=== PATIENT | female | born 1960 | race Caucasian/White ===

== ENCOUNTER → 2017-02-23 | Outpatient (CLI) | payer BC ==
[~2017-02-23] MED LIST: ADVAIR HFA 45-218 GM INH; BLACK COHOSH40 M1 PO; CALCIUM 600 +1 EAC5 PO; CITRUCEL500 MG PO; DIFLUCAN PO; IRON325 MG PO; OMEPRAZOLE40 M1; VITAMIN D35000 UNIT PO
--- NOTE | ~2017-02-23 | US6 ---
[facility] A Service of [facility] & [facility] RADIOLOGY TEXT RESULTS PATIENT: LEVON LAZO LOCATION: [facility] : 62 UNIT #: [id number] AGE: [address]: Alphonse Walker MD SEX: F ORDER DR: [id number] [facility] [address]. [place], [place] [address] [id number] O MR#: [id number] Acc #: [id number] NAME: LEVON LAZO : 1960 SEX: F STUDY DATE/TIME: 02/23/2017 10:17 UNIT: [facility] ROOM: STUDY DESCRIPTION: US Abdominal Limited Attending Physician: Alphonse Walker M.D. Referring Physician: Alphonse Walker M.D. Ordering Physician: Alphonse Walker M.D. Primary Care Physician: Butch Ta M.D. MEDICAL IMAGING REPORT This report is preliminary unless electronic signature is present EXAM Right upper quadrant ultrasound 02/23/2017 INDICATIONS Postprandial epigastric pain intermittently for 3 weeks in a 56-year-old female, history of asthma. Sonographic imaging of the right upper quadrant was performed. COMPARISON STUDIES We have no comparisons FINDINGS The pancreas is unremarkable. The liver measures 14.3 cm long axis and is unremarkable. The right kidney demonstrates no obstruction and measures 10 cm long axis. The gallbladder is sonographically unremarkable. Extrahepatic common bile duct measures 3 mm. IMPRESSION Negative right upper quadrant ultrasound. Dictated by... Tremayne Gunderson M.D. THIS IS AN ELECTRONICALLY VERIFIED REPORT Tremayne Gunderson M.D. at 02/23/2017 4:11 PM Bharathi TD: 02/23/2017 16:00 JOB #: [id number] MEDICAL IMAGING REPORT Page 1 of 1 COPY
== END | disposition home or self-care (01) ==
LOC: CGUS 09:58
DX: R10.9 Unspecified abdominal pain (principal)
CPT/HCPCS: 76705

== ENCOUNTER → 2017-03-27 | Day surgery (SDC) | payer BC ==
--- NOTE | ~2017-03-27 | OR ---
Unit #: [id number] #: [id number] Patient: LEVON LAZO [id number] [address] [place], [place] [address] [id number] O MR#: [id number] NAME: LEVON LAZO ROOM: Date of Procedure: 03/27/2017 Admission Date: 03/27/2017 Surgeon: Alphonse Walker M.D. : 1960 Attending Physician: Alphonse Walker M.D. Primary Care Physician: Butch Ta M.D. OPERATIVE REPORT PREOPERATIVE DIAGNOSES 1. Epigastric pain. 2. Screening colonoscopy. POSTOPERATIVE DIAGNOSES 1. Epigastric pain. 2. Screening colonoscopy. PROCEDURES PERFORMED 1. Esophagogastroduodenoscopy. 2. Biopsy of antrum for Helicobacter pylori testing. 3. Colonoscopy to cecum. ANESTHESIA Monitored anesthesia care. FINDINGS The patient was found on upper endoscopy to have mild duodenitis, moderate gastritis as well as thrush in the esophagus. On colonoscopy, the patient was found to have a very tortuous colon and mild internal hemorrhoids. SPECIMENS Sent to pathology. COMPLICATIONS None apparent. CONDITION The patient tolerated the procedure well. INDICATIONS FOR PROCEDURE The patient is a 56-year-old white female, who presents at this time with epigastric pain. She has also not had screening colonoscopy for 9 years. She presents at this time for upper and lower endoscopy. DESCRIPTION OF PROCEDURE After obtaining informed consent, the patient was brought to the endoscopy suite and after adequate monitored anesthesia care, had the endoscope placed through the mouth into the upper esophagus under direct vision. The endoscope was slowly advanced with the lumen always in view to the third portion of the duodenum. The third portion of the duodenum was normal. The second portion and bulb had mild duodenitis present. The Unit #: [id number] #: [id number] Patient: LEVON LAZO pylorus opened normally. There was [id number] distal gastritis present and a biopsy was obtained for Helicobacter pylori testing. On retroflexing back to the GE junction, there was no hiatal hernia seen. No abnormalities were found in the proximal third, middle third, or incisura. On pulling back above the GE junction, there was no stenosis, stricture, or neoplasm seen. There was no significant esophagitis. In the remaining portion of the esophagus, there was white plaque areas consistent with thrush. Other than this, no other abnormalities were seen. Laryngeal structures were grossly normal as viewed from above. At this point in time, the colonoscope was placed through the anus and slowly advanced with the lumen always in view to the level of the cecum. The cecum was normal as was the ileocecal valve. The ascending colon was normal as was the hepatic flexure, transverse colon, splenic flexure, descending colon, sigmoid colon, and rectum. It was notable that the colon was very tortuous. No abnormalities were seen. The rectosigmoid and rectum were all within normal limits. On retroflexing in the rectum to the anorectal junction, the patient was found to have some mild internal hemorrhoids. The scope was removed without difficulty. The patient went from the endoscopy suite to recovery area in stable condition. RECOMMENDATIONS Gastroesophageal reflux sheet given. Omeprazole 40 mg p.o. daily. Prescription given, Diflucan 150 mg p.o. one dose given. The patient will call Sunday for results. We recommend high-fiber diet, lots of liquids, tucks or wipes p.r.n. Dictated by... Alphonse Walker M.D. LLUVIA/jada TD: 03/27/2017 20:32 JOB #: [id number] CC: [facility] OPERATIVE REPORT Page 1 of 1 X Alphonse Walker MD X PROCEDURE OPERATIVE NOTE
== END | disposition home or self-care (01) ==
LOC: COPS 03-05 14:00
DX: Z12.11 Encounter for screening for malignant neoplasm of colon (principal); K29.80 Duodenitis without bleeding; K29.70 Gastritis, unspecified, without bleeding; K64.8 Other hemorrhoids; K56.2 Volvulus; J45.909 Unspecified asthma, uncomplicated; M19.90 Unspecified osteoarthritis, unspecified site; E89.0 Postprocedural hypothyroidism; Z87.891 Personal history of nicotine dependence; Z88.8 Allergy status to other drugs, medicaments and biological substances; Z79.899 Other long term (current) drug therapy; Z98.890 Other specified postprocedural states
CPT/HCPCS: 87077

== ENCOUNTER → 2017-04-03 | Outpatient (CLI) | payer BC ==
[2017-04-03 16:16] LABS: CALCIUM SERUM 9.2 mg/dL (8.4-10.2); GLOM FILT RATE Estimated 63.4 mL/min (>60); MAGNESIUM 2.2 mg/dL (1.6-3.0); POTASSIUM 4.4 mmol/L (3.5-5.1)
== END | disposition home or self-care (01) ==
LOC: CLAB 15:01
PROVIDERS: Surgery
DX: Z00.00 Encounter for general adult medical examination without abnormal findings (principal); R10.13 Epigastric pain
CPT/HCPCS: 36415; 80048; 83735